=== PATIENT | male | born 1985 | race Two or more races ===

== ENCOUNTER 2020-07-27 10:22 | Outpatient (CLI) | payer OTHER | END 2020-07-27 11:20 | disposition home or self-care (01) | LOC: OFIC 805 10:22 | PROVIDERS: ATTEND Otolaryngology | DX: J34.2 Deviated nasal septum (principal); M95.0 Acquired deformity of nose; R09.81 Nasal congestion; G50.1 Atypical facial pain; J30.89 Other allergic rhinitis; R04.0 Epistaxis ==

== ENCOUNTER 2020-09-02 09:45 | Outpatient (CLI) | payer OTHER | END 2020-09-02 11:00 | disposition home or self-care (01) | LOC: OFIC 805 09:45 | PROVIDERS: ATTEND Otolaryngology | DX: J34.2 Deviated nasal septum (principal); G50.1 Atypical facial pain; R09.81 Nasal congestion; J30.89 Other allergic rhinitis; J34.3 Hypertrophy of nasal turbinates ==

== ENCOUNTER → 2020-09-06 | Outpatient (CLI) | payer OTHER | END | disposition home or self-care (01) | LOC: OFIC 805 11:45 | PROVIDERS: ATTEND Otolaryngology | DX: J34.3 Hypertrophy of nasal turbinates (principal); J34.2 Deviated nasal septum; G50.1 Atypical facial pain; J34.89 Other specified disorders of nose and nasal sinuses ==

== ENCOUNTER → 2020-09-27 08:00 | Outpatient (CLI) | payer OTHER ==
[~2020-09-27 08:00] MED LIST: ZYRTEC10 M3 PO
== END | disposition home or self-care (01) ==
LOC: ADM 07:45 → LAB 08:00 → CIR.AMB 10-04 07:45 → EDSTATUS 10-04 07:45 → CIR.AMB 10-04 14:45
PROVIDERS: ATTEND Otolaryngology
DX: Z20.828 Contact with and (suspected) exposure to other viral communicable diseases (principal); S02.2XXS Fracture of nasal bones, sequela; I10 Essential (primary) hypertension; Z03.818 Encounter for observation for suspected exposure to other biological agents ruled out; J34.89 Other specified disorders of nose and nasal sinuses; J34.2 Deviated nasal septum